=== PATIENT | female | born 1970 | race American Indian/Alaskan Native ===

== ENCOUNTER 2022-02-14 16:29 | Emergency (ER) | payer OTHER ==
[2022-02-14] MEDS ORDERED: SODIUM CHLORIDE 0.9% 1000 ML 1,000 ML IV ONE (18:44)
[2022-02-14 19:07] LABS: Hematocrit 32.8 % (30.3-42.9); Hemoglobin 10.5 gm/dl (10.1-14.3); Mean Corpuscular HGB Conc 32 % (30-34); Mean Corpuscular Volume 93 fl (79-97); Red Blood Count 3.53 M/mm3 (3.65-5.03); Red Cell Distribution Width 19.1 % (13.2-15.2)
--- NOTE | 2022-02-14 19:13 | XRay Report ---
CHEST 1 VIEW 02/14/2022 6:06 PM INDICATION / CLINICAL INFORMATION: Chest Pain. COMPARISON: None available. FINDINGS: SUPPORT DEVICES: None. HEART / MEDIASTINUM: No significant abnormality. LUNGS / PLEURA: No significant pulmonary or pleural abnormality. No pneumothorax. ADDITIONAL FINDINGS: No significant additional findings. IMPRESSION: 1. No acute findings. Signer Name: Cornell Guerra MD Signed: 02/14/2022 7:09 PM Workstation Name: [id number]
[2022-02-14 19:15] LABS: Platelet Count 87 K/mm3 (140-440)
[2022-02-14 19:32] LABS: Alanine Aminotransferase 8 units/L (7-56); BUN/Creatinine Ratio 17; Blood Urea Nitrogen 15 mg/dL (7-17); Calcium 7.6 mg/dL (8.4-10.2); Hemolysis Index 2
[2022-02-14 19:33] LABS: INR 1.1 (0.87-1.13)
[2022-02-14] MEDS ORDERED: POTASSIUM CHLORIDE ER 20 MEQ TAB PO ONE (19:49)
[2022-02-14] MEDS ORDERED: MAGNESIUM SULFATE 2 GM/50 ML BAG IV ONE (20:04)
--- NOTE | 2022-02-14 20:20 | Emergency Department Report ---
<PA BLEVINS - Last Filed: 02/15/22 02:35> ED General Adult HPI - General Chief complaint: Medical Clearance Stated complaint: TOOK WRONG MEDS/ WEAK Time Seen by Provider: 02/14/22 18:35 - Related Data Previous Rx's Medication Instructions Recorded Last Taken Type Magnesium Carb,Citrate,Oxide 300 mg PO DAILY #7 tab 02/15/22 Unknown Rx [Magnesium Complex] Multivitamin/Iron/Folic Acid 1 each PO DAILY #30 tab 02/15/22 Unknown Rx [Centrum Women Tablet] Potassium Chloride [K-Dur] 20 meq PO BID #6 tab 02/15/22 Unknown Rx Thiamine [Vitamin B-1] 100 mg PO QDAY #30 tablet 02/15/22 Unknown Rx Allergies Allergy/AdvReac Type Severity Reaction Status Date / Time No Known Allergies Allergy Verified 02/14/22 16:46 ED Past Medical Hx - Medications Home Medications: Home Medications Medication Instructions Recorded Confirmed Last Taken Type Magnesium Carb,Citrate,Oxide 300 mg PO DAILY #7 tab 02/15/22 Unknown Rx [Magnesium Complex] Multivitamin/Iron/Folic Acid 1 each PO DAILY #30 tab 02/15/22 Unknown Rx [Centrum Women Tablet] Potassium Chloride [K-Dur] 20 meq PO BID #6 tab 02/15/22 Unknown Rx Thiamine [Vitamin B-1] 100 mg PO QDAY #30 tablet 02/15/22 Unknown Rx ED Course - Reevaluation(s) Reevaluation #1: 02/15/22 00:06 Patient vital signs normal. Present nurse asked to update them in the computer). Patient does not have any complaints currently. Repeat potassium magnesium much improved with ED treatment. Patient is currently receiving her second 10 mEq IV dose of potassium chloride and completing her banana bag. She will be discharged once these are complete with p.o. magnesium and potassium supplementation. Patient is an alcoholic and states she stopped drinking alcohol approximately 1 week ago and does not currently endorse tremors and does not have signs of hypertension or tachycardia ED Medical Decision Making - Lab Data Result diagrams: 02/14/22 18:56 02/14/22 23:02 ED Disposition Clinical Impression: Accidental ingestion of substance, Hypokalemia, Hypomagnesemia Disposition: 01 HOME / SELF CARE / HOMELESS Condition: Stable Instructions: Alcohol Use Disorder, Hypomagnesemia, Hypokalemia, Preventing Poisoning, Adult Additional Instructions: Take the medication as prescribed. Follow-up with your doctor or doctor/clinic provided. Return if symptoms worsen as indicated by your discharge instructions. Professional and Agency Contacts To help [facility] (05/02) [place] Crisis Line: Suicide Prevention Line: Crisis Text Line: Text ``START to [phone] Emergency: 911 SUBSTANCE ABUSE PROGRAMS: [facility]: Location: [place], [place] [employer]! Address: [address] [place] [address] [facility]: Address: [address] [place] [address] [place] [facility]: Address: [address] [place] [address] [facility]: Address: [address] [place] [address] Prescriptions: Multivitamin/Iron/Folic Acid [Centrum Women Tablet] 1 each PO DAILY #30 tab Potassium Chloride [K-Dur] 20 meq PO BID #6 tab Magnesium Carb,Citrate,Oxide [Magnesium Complex] 300 mg PO DAILY #7 tab Thiamine [Vitamin B-1] 100 mg PO QDAY #30 tablet Referrals: GEORGIE UNDERWOOD MD [Primary Care Provider] - 3-5 Days [facility] [Provider Group] - 3-5 Days Time of Disposition: 01:06 <LIBBY KIM - Last Filed: 02/15/22 07:26> ED General Adult HPI - General PUI?: No Source: EMS Mode of arrival: Stretcher Limitations: No Limitations - History of Present Illness Initial comments: pt took hydralazine 100 mg instead of her muscle relaxer, accidental she feels wek and cramoy -: Sudden, hour(s) Severity scale (0 -10): 0 Improves with: none Worsens with: none Associated Symptoms: malaise, weakness. denies: headaches, loss of appetite, nausea/vomiting Treatments Prior to Arrival: none ED Review of Systems ROS: Stated complaint: TOOK WRONG MEDS/ WEAK Other details as noted in HPI Constitutional: denies: chills, fever Eyes: denies: eye pain, eye discharge, vision change ENT: denies: ear pain, throat pain Respiratory: denies: cough, shortness of breath, wheezing Cardiovascular: denies: chest pain, palpitations Endocrine: no symptoms reported Gastrointestinal: denies: abdominal pain, nausea, diarrhea Genitourinary: denies: urgency, dysuria, discharge Musculoskeletal: denies: back pain, joint swelling, arthralgia Skin: denies: rash, lesions Neurological: denies: headache, weakness, paresthesias Psychiatric: denies: anxiety, depression Hematological/Lymphatic: denies: easy bleeding, easy bruising ED Past Medical Hx - Past Medical History Hx Hypertension: Yes Additional medical history: anxiety ED Physical Exam - General Limitations: No Limitations General appearance: alert, in no apparent distress - Head Head exam: Present: atraumatic, normocephalic - Eye Eye exam: Present: normal appearance - ENT ENT exam: Present: mucous membranes moist - Neck Neck exam: Present: normal inspection - Respiratory Respiratory exam: Present: normal lung sounds bilaterally. Absent: respiratory distress - Cardiovascular Cardiovascular Exam: Present: regular rate, normal rhythm. Absent: systolic murmur, diastolic murmur, rubs, gallop - GI/Abdominal GI/Abdominal exam: Present: soft, normal bowel sounds - Extremities Exam Extremities exam: Present: normal inspection - Back Exam Back exam: Present: normal inspection - Neurological Exam Neurological exam: Present: alert, oriented X3 - Psychiatric Psychiatric exam: Present: normal affect, normal mood - Skin Skin exam: Present: warm, dry, intact, normal color. Absent: rash ED Course Vital Signs 02/14/22 02/14/22 02/14/22 16:39 17:19 17:30 Temperature 98.4 F Pulse Rate 99 H 104 H 124 H Respiratory 16 20 Rate Blood Pressure 117/63 Blood Pressure 97/56 [Left] O2 Sat by Pulse 98 100 Oximetry 02/14/22 02/14/22 02/14/22 17:45 18:00 18:16 Temperature Pulse Rate 93 H 90 90 Respiratory 8 L 11 L 17 Rate Blood Pressure 139/64 104/57 121/97 Blood Pressure [Left] O2 Sat by Pulse 100 100 99 Oximetry 02/14/22 02/14/22 02/14/22 18:30 18:45 19:00 Temperature Pulse Rate 79 68 70 Respiratory 14 14 11 L Rate Blood Pressure 121/97 108/61 103/68 Blood Pressure [Left] O2 Sat by Pulse 100 100 100 Oximetry 02/14/22 02/14/22 02/14/22 19:15 19:30 19:45 Temperature Pulse Rate 72 70 87 Respiratory 13 12 15 Rate Blood Pressure 113/64 107/61 124/71 Blood Pressure [Left] O2 Sat by Pulse 100 100 Oximetry 02/14/22 02/14/22 02/14/22 20:00 20:16 20:30 Temperature Pulse Rate 91 H 100 H 95 H Respiratory 9 L 12 14 Rate Blood Pressure 124/71 95/45 116/53 Blood Pressure [Left] O2 Sat by Pulse 100 99 100 Oximetry 02/14/22 02/14/22 02/15/22 20:37 20:39 00:07 Temperature Pulse Rate 94 H 78 Respiratory 15 15 Rate Blood Pressure Blood Pressure 116/53 102/66 [Left] O2 Sat by Pulse 100 100 100 Oximetry 02/15/22 02:39 Temperature 98.0 F Pulse Rate 80 Respiratory 18 Rate Blood Pressure Blood Pressure 110/72 [Left] O2 Sat by Pulse 98 Oximetry ED Medical Decision Making - Lab Data Result diagrams: 02/14/22 18:56 02/14/22 23:02 - Medical Decision Making work up showed low potassium and magnesium, replaced po and IV Critical care attestation.: If time is entered above; I have spent that time in minutes in the direct care of this critically ill patient, excluding procedure time. ED Disposition Is pt being admited?: No Does the pt Need Aspirin: No
[2022-02-14] MEDS: POTASSIUM CHLORIDE 10 MEQ 10 MEQ/100 ML BAG IV SCH (21:05)
[2022-02-14] MEDS ORDERED: THIAMINE 100 MG, FOLIC ACID 1 MG, MULTIPLE VITAMIN INJ, ADULT 10 ML in SODIUM CHLORIDE ... IV ONE (21:12)
[2022-02-14 21:40] LABS: Amphetamine Screen,Urine Negative; Benzodiazepines Screen,Urine Negative; Cannabinoid Screen,Urine Negative; Cocaine Screen,Urine Negative; Methadone Screen,Urine Negative; Opiate Screen,Urine Negative
[2022-02-14 23:47] LABS: Alanine Aminotransferase 8 units/L (7-56); Albumin 4.1 g/dL (3.9-5); BUN/Creatinine Ratio 16; Blood Urea Nitrogen 13 mg/dL (7-17); Calcium 7.4 mg/dL (8.4-10.2); Hemolysis Index 30
[2022-02-15 00:02] LABS: Basophils % (Manual) 0 % (0.0-1.8); Hypochromasia 1+; Ovalocytes Few; Platelet Estimate Consistent w Auto; Target Cells Few; Total Cells Counted 100
[2022-02-15] MEDS: POTASSIUM CHLORIDE 10 MEQ 10 MEQ/100 ML BAG IV SCH (00:06)
[2022-02-15 02:40] VITALS: BP 110/72
[2022-02-15] MEDS ORDERED: MAGNESIUM OXIDE 400 MG TAB PO ONE (20:05)
--- NOTE | 2022-02-16 18:19 | Electrocardiograph Report ---
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
== END 2022-02-15 02:00 | disposition home or self-care (01) ==
LOC: ED 16:29
DX: T46.5X1A Poisoning by other antihypertensive drugs, accidental (unintentional), initial encounter (principal); I10 Essential (primary) hypertension; F41.9 Anxiety disorder, unspecified; R79.1 Abnormal coagulation profile; E87.6 Hypokalemia; E83.42 Hypomagnesemia; Z79.899 Other long term (current) drug therapy; Y92.89 Other specified places as the place of occurrence of the external cause
CPT/HCPCS: 36415; 71045; 80053; 80307; 83690; 83735; 84484; 85007; 85025; 85610; 93005; 96365; 96366; 96367; 96368; 99284; J3411; J3475; J3480; J3490; J7030